=== PATIENT | female | born 1960 | race Caucasian/White ===

== ENCOUNTER 2024-10-26 21:52 | Emergency (ER) | payer BC, OTHER ==
[~2024-10-26] VITALS: Ht 162.6 cm; Wt 61.4 kg
[2024-10-26] MEDS ORDERED: HYDR12.55 PO (22:14)
[2024-10-26] MEDS ORDERED: LOSA25TA13 PO (22:14)
[2024-10-26] MEDS: MORPHINE 4 MG/ML 1 ML VIAL IV PRN (23:24)
[2024-10-26] MEDS: ONDANSETRON 4MG 2ML VIAL IV ONE (23:24)
[2024-10-27] MEDS: ceFAZolin SODIUM 2 GM in DEXTROSE 5% (D5W) ADV/MINI-BAG 50 ML IV ONE (00:12)
[2024-10-27] MEDS: TETANUS/DIPHTH/ACEL. PERTUSSIS 0.5 ML SYR IM ONE (00:12)
[2024-10-27] MEDS: LIDOCAINE 1% MDV 20 ML VIAL SC ONE (01:07)
[2024-10-27 01:30] VITALS: TEMP 98
[2024-10-27] MEDS: DERMABOND TOPICAL SKIN ADHESIVE TOP ONE (01:50)
[2024-10-27] MEDS ORDERED: CEPH500C PO (02:12)
[2024-10-27 02:30] VITALS: BP 139/81; O2SAT 95
== END 2024-10-27 02:35 | disposition home or self-care (01) ==
LOC: M ED 21:52
DX: S61.213A Laceration without foreign body of left middle finger without damage to nail, initial encounter (principal); S61.211A Laceration without foreign body of left index finger without damage to nail, initial encounter; I10 Essential (primary) hypertension; F10.90 Alcohol use, unspecified, uncomplicated; W01.0XXA Fall on same level from slipping, tripping and stumbling without subsequent striking against object, initial encounter; Y92.89 Other specified places as the place of occurrence of the external cause; Y93.89 Activity, other specified; Y99.8 Other external cause status; Z79.899 Other long term (current) drug therapy
CPT/HCPCS: 12001; 12031; 73130; 90715; 96365; 96366; 96372; 96375; 99284; J0690; J2405